=== PATIENT | male | born 1980 | race Hispanic/Latino ===

== ENCOUNTER 2020-08-06 05:31 | Inpatient (IN) | payer OTHER ==
[~2020-08-06] VITALS: Ht 167.6 cm; Wt 118.6 kg
[2020-08-06 06:07] LABS: BASOPHILS % (AUTO) 0.6 % (0.0-5.0); HEMATOCRIT 45.1 % (42-54); LYMPHOCYTES % (AUTO) 26.3 % (21.0-51.0); MEAN CORPUSCULAR HEMOGLOBIN 27.7 pg (27.0-33.0); MEAN CORPUSCULAR HGB CONC 34.1 g/dL (32.0-36.0); MEAN CORPUSCULAR VOLUME 81.3 fL (79-99); MONOCYTES % (AUTO) 5.8 % (3.0-13.0); NEUTROPHILS % (AUTO) 59.1 % (40.0-77.0); PLATELET COUNT (AUTO) 185 K/uL (130-400); RED BLOOD CELL COUNT(AUTO) 5.55 MIL/uL (4.50-6.20); RED CELL DISTRIBUTION WIDTH 13.8 % (11.0-15.5)
[2020-08-06 06:19] LABS: CARBON DIOXIDE 26 mmol/L (21-32); CHLORIDE 107 mmol/L (101-111); CREATININE 0.9 mg/dL (0.5-1.5); GLOMERULAR FILTR. RATE CALC 99 mL/min (>60); GLUCOSE,RANDOM 97 mg/dL (70-105); POTASSIUM 3.1 mmol/L (3.5-5.1); SODIUM SERUM 139 mmol/L (136-145); UREA NITROGEN, BLOOD 10 mg/dL (7-18)
[2020-08-06 06:30] LABS: ALANINE AMINOTRANSFERASE 17 U/L (12-78); BILIRUBIN,TOTAL 0.1 mg/dL (0.2-1.0); TOTAL PROTEIN, SERUM 5.3 g/dL (6.0-8.3)
[2020-08-06 06:46] LABS: ALBUMIN < 0.6 g/dL (3.5-5.0); ASPARTATE AMINOTRANSFERASE 34 U/L (10-37)
[2020-08-06 08:04] LABS: APPEARANCE,URINE Clear (CLEAR); BILIRUBIN,URINE Negative (NEGATIVE); COLOR,URINE Dark Yellow (YELLOW); GLUCOSE, URINE (UA) Negative (NEGATIVE); KETONES,URINE Negative (NEGATIVE); LEUKOCYTE ESTERASE ,URINE Negative (NEGATIVE); NITRATE,URINE Negative (NEGATIVE); OCCULT BLOOD,URINE Large (NEGATIVE); PH,URINE 6.5 (5.0-8.0); PROTEIN,URINE >=1000 mg/dL (NEGATIVE); UROBILINOGEN,URINE 0.2 mg/dL (0.2-1.0)
[2020-08-06 08:12] LABS: BACTERIA,URINE Rare /HPF (None Seen); MUCUS,URINE Few LPF (None Seen); SQUAMOUS EPITHELIAL CELL,UR Rare /HPF (0-2); WBC,URINE 0-1 /HPF (0-1)
[2020-08-06 08:13] LABS: B-TYPE NATRIURETIC PEPTIDE 21 pg/mL (0-100)
[2020-08-06 10:32] LABS: HDL CHOLESTEROL 46 mg/dL (29-71); LDL DIRECT 194 mg/dL (0-99); TRIGLYCERIDES 726 mg/dL (30-200)
[2020-08-06 10:45] LABS: CHOLESTEROL 333 mg/dL (<200)
[2020-08-06 23:42] VITALS: BP 148/89
[2020-08-07 04:00] VITALS: BP 125/83
[2020-08-07 05:23] LABS: HEMATOCRIT 39.4 % (42-54); MEAN CORPUSCULAR HEMOGLOBIN 28.6 pg (27.0-33.0); MEAN CORPUSCULAR VOLUME 81.6 fL (79-99); RED BLOOD CELL COUNT(AUTO) 4.83 MIL/uL (4.50-6.20); RED CELL DISTRIBUTION WIDTH 13.8 % (11.0-15.5); WHITE BLOOD COUNT (AUTO) 4.9 K/uL (4.8-10.8)
[2020-08-07 05:39] LABS: CARBON DIOXIDE 27 mmol/L (21-32); CHLORIDE 110 mmol/L (101-111); CREATININE 0.9 mg/dL (0.5-1.5); GLOMERULAR FILTR. RATE CALC 99 mL/min (>60); GLUCOSE,RANDOM 99 mg/dL (70-105); PHOSPHORUS 2.9 mg/dL (2.5-4.9); POTASSIUM 3.2 mmol/L (3.5-5.1); SODIUM SERUM 140 mmol/L (136-145); UREA NITROGEN, BLOOD 11 mg/dL (7-18)
[2020-08-07 05:47] LABS: ALBUMIN < 0.6 g/dL (3.5-5.0)
[2020-08-07 07:49] VITALS: BP 141/87
--- NOTE | 2020-08-07 11:28 | NUR ---
24 HOUR URINE COMPLETED AND SENT TO LAB
[2020-08-07 11:47] VITALS: BP 142/92
[2020-08-07 13:08] LABS: CREATININE,SERUM FOR CRCL 0.9 mg/dL (0.6-1.3)
--- NOTE | 2020-08-07 14:10 | NUR ---
DR KRISTI BERRY ROUNDED ON PATIENT NEW ORDERS RECEIVED FOR LASIX 40MG IV Q 12 HOURS , ORDERS PLACED
[2020-08-07] MEDS ORDERED: POTASSIUM CHLORIDE 20 MEQ ERTAB PO SCH (14:18)
[2020-08-07] MEDS: FUROSEMIDE 10 MG/ML 4ML VIAL IV SCH (14:34)
--- NOTE | 2020-08-07 14:50 | NUR ---
DR TAYLER LESTER ROUNDED ON PATIENT ORDERS RECEIVED FOR LISINOPRIL 20 MG PO DAILY AND LOVENOX 30 JAMES SQ DAILY, ORDERS PLACED
[2020-08-07 16:23] VITALS: BP 134/89
--- NOTE | 2020-08-07 17:47 | NUR ---
DCP CM met with pt discussed dc plans. Pt is independent prior to admission, lives at home with spouse Callie Nix . Denies any equipments/services. Feels safe to go back home, still drives and work, spouse able to assist with transportation and needs as necessary. DC plan to home once stable. CM to continue to follow up. Addendum: 08/07/20 at 1748 by SANDRA OAKLEY LVN CM Amended: Links added.
[2020-08-07 20:00] VITALS: BP 148/96
[2020-08-07] MEDS ORDERED: TRAMADOL HCL 50 MG TABLET PO PRN (22:15)
[2020-08-07] MEDS: TRAMADOL HCL 50 MG TABLET PO PRN (22:45)
[2020-08-07 23:59] VITALS: BP 141/92
[2020-08-08] MEDS: FUROSEMIDE 10 MG/ML 4ML VIAL IV SCH ×2 (02:21→14:29)
[2020-08-08 04:00] VITALS: BP 131/85
[2020-08-08 06:54] LABS: CARBON DIOXIDE 29 mmol/L (21-32); CHLORIDE 108 mmol/L (101-111); GLOMERULAR FILTR. RATE CALC 88 mL/min (>60); GLUCOSE,RANDOM 79 mg/dL (70-105); PHOSPHORUS 3.6 mg/dL (2.5-4.9); POTASSIUM 3.1 mmol/L (3.5-5.1); SODIUM SERUM 141 mmol/L (136-145); UREA NITROGEN, BLOOD 9 mg/dL (7-18)
[2020-08-08 06:57] LABS: ALBUMIN < 0.6 g/dL (3.5-5.0)
[2020-08-08 07:30] VITALS: BP 120/78
[2020-08-08] MEDS ORDERED: ENOXAPARIN SODIUM 30 MG/0.3 ML SQ SCH (09:00)
[2020-08-08] MEDS: LISINOPRIL 20 MG TABLET PO SCH (09:40)
[2020-08-08 10:14] LABS: HEPATITIS B CORE IGM Negative (Negative); HEPATITIS Bs ANTIGEN SCREEN P Negative (Negative)
[2020-08-08 11:00] VITALS: BP 146/86
[2020-08-08] MEDS ORDERED: POTASSIUM CHLORIDE 20 MEQ ERTAB PO ONE (15:22)
[2020-08-08] MEDS ORDERED: POTASSIUM CHLORIDE 10% ELIXIR 20 MEQ/15 ML UDCUP PO PRN (15:30)
[2020-08-08] MEDS ORDERED: LIDOCAINE HCL-MPF 1% 2ML VIAL IV PRN ×2 (15:30)
[2020-08-08] MEDS ORDERED: POTASSIUM CHLORIDE 20MEQ/100ML 100 ML IV PRN ×2 (15:30)
[2020-08-08 15:54] VITALS: BP 128/91
[2020-08-08] MEDS: POTASSIUM CHLORIDE 20 MEQ ERTAB PO PRN ×2 (16:14→16:15)
--- NOTE | 2020-08-08 19:39 | NUR ---
MD ROUNDS DR. BERRY IN TO SEE PATIENT. POC DISCUSSED, PLAN FOR CT GUIDED RENAL BX FOR TOMORROW. NEW ORDERS RECEIVED TO BE CARRIED OUT.
[2020-08-08 20:00] VITALS: BP 147/91
[2020-08-08] MEDS: BUMETANIDE 1 MG TAB PO SCH (20:30)
--- NOTE | 2020-08-08 22:18 | NUR ---
MD ROUNDS DR. LESTER IN TO SEE PATIENT. UPDATED ON ORDERS FROM DR. SANTIAGO.
[2020-08-08 23:59] VITALS: BP 154/96
[2020-08-09] VITALS (11 sets, daily range): BP systolic 125–154; BP diastolic 77–94
[2020-08-09] MEDS: TRAMADOL HCL 50 MG TABLET PO PRN ×2 (02:48→23:41)
[2020-08-09 04:02] LABS: INR 0.91 (0.85-1.15); POTASSIUM 3.2 mmol/L (3.5-5.1); PROTHROMBIN TIME 9.9 SEC (9.6-11.6)
--- NOTE | 2020-08-09 06:45 | NUR ---
CONSENT FOR CT GUIDED RNAL BX SIGNED BY PATIENT. PT IS NPO. PATIENT WITH C/O PAIN TO RIGHT SHOULDER, STATES HE HAS HAD PAIN SINCE JUNE. AT THIS TIME HEAT COMPRESSIONS APPPLIED
[2020-08-09] MEDS: BUMETANIDE 1 MG TAB PO SCH ×2 (09:00→21:23)
[2020-08-09] MEDS: POTASSIUM CHLORIDE 20 MEQ ERTAB PO SCH (13:19)
[2020-08-09] MEDS ORDERED: FENTANYL CITRATE PF 50 MCG/1 ML 2ML VIAL ONE (13:55)
--- NOTE | 2020-08-09 15:05 | NUR ---
US GUIDED BIOPSY OF LEFT KIDNEY PROCEDURE PERFORMED BY DR. THAYER. PUNCTURE SITE LEFT LOWER LUMBAR AREA AND PATIENT TOLERATED PROCEDURE WELL. SPECIMEN X 3 COLLECTED AND SENT TO LAB. END OF PROCEDURE AT 1510. BIOPSY NEEDLE REMOVED AND DRESSING APPLIED. NO BLEEDING NOTED. REPORT GIVEN TO KAPIL BLANCAS AND PATIENT TRANSPORTED TO 3RD FLOOR RM 308 VIA BED. AAO X 3 WITH NO C/O PAIN.
[2020-08-09] MEDS: METOLAZONE 2.5 MG TABLET PO SCH (17:23)
[2020-08-09] MEDS: LISINOPRIL 20 MG TABLET PO SCH (17:35)
[2020-08-10 03:54] VITALS: BP 114/75
[2020-08-10 08:00] VITALS: BP 118/69
[2020-08-10] MEDS: METOLAZONE 2.5 MG TABLET PO SCH (09:45)
[2020-08-10] MEDS: BUMETANIDE 1 MG TAB PO SCH (09:45)
[2020-08-10] MEDS: LISINOPRIL 20 MG TABLET PO SCH (09:45)
[2020-08-10] MEDS: POTASSIUM CHLORIDE 20 MEQ ERTAB PO SCH (09:46)
[2020-08-10 11:11] VITALS: BP 120/69
--- NOTE | 2020-08-10 16:25 | NUR ---
Mr. Nix was discharged on 08/10/2020 at 1625. The patient was educated on new prescriptions (bumetanide, potassium), how to manage his colostomy bag, when to follow up with Dr. Duarte. The patient understood all instructions and had no further questions regarding discharge teaching, patient tolerated teaching well. IV was taken out and intact.
== END 2020-08-10 16:25 | disposition home or self-care (01) | DRG 699 ==
LOC: EDH 05:31 → EDHIP 09:21 → 3BH 22:25
PROVIDERS: ADMIT Internal Medicine; ATTEND Internal Medicine
PROC: 0TB13ZX Excision of Left Kidney, Percutaneous Approach, Diagnostic (ICD-10-PCS; principal; 2020-08-09)
DX: N04.9 Nephrotic syndrome with unspecified morphologic changes (principal); Z68.41 Body mass index [BMI] 40.0-44.9, adult; I10 Essential (primary) hypertension; E66.01 Morbid (severe) obesity due to excess calories; E87.6 Hypokalemia; E88.09 Other disorders of plasma-protein metabolism, not elsewhere classified; N18.9 Chronic kidney disease, unspecified; Z93.3 Colostomy status; K57.90 Diverticulosis of intestine, part unspecified, without perforation or abscess without bleeding; Z20.828 Contact with and (suspected) exposure to other viral communicable diseases
CPT/HCPCS: 36415; 50200; 74177; 76770; 76942; 80048; 80053; 80061; 80069; 81001; 82575; 83880; 84156; 85025; 85027; 85610; 86431; 86705; 86706; 87340; 87426; G0378; J1650; J1940; J3010; U0003